=== PATIENT | male | born 1955 | race Caucasian/White ===

== ENCOUNTER 2017-07-04 08:22 | Outpatient (CLI) | payer OTHER, MEDICARE ==
--- NOTE | 2017-07-04 11:29 | ULT ---
ULTRASOUND RETROPERITONEUM COMPLETE: (RENAL) HISTORY: A 62-year-old male with microscopic hematuria. FINDINGS: The right kidney is 14.5 x 5.5 x 6.5 cm. The left kidney is 14 x 6 x 6.5 cm. No moderate sized or large cystic or solid renal lesion identified. No hydronephrosis. Pre-void urinary bladder volume 175 mL. Post-void urinary bladder volume 0. Prostate gland is lobulated, encroaches upon the floor of the bladder, and has a volume of approximat yordan 85 mL. Incidentally, hepatic echogenicity is diffusely increased. There are bilateral lobulations of the kidneys, a normal variant. IMPRESSION: 1. 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 2. Otherwise, no major pathology of the kidneys identified. 3. Enlarged prostate: evidence for benign prostatic hyperplasia, without bladder outlet obstruction. 4. Hepatic steatosis. OVI Bernal POS: [facility]
== END 2017-07-04 08:23 | disposition home or self-care (01) ==
LOC: ULT 08:22
PROVIDERS: ATTEND Urology
DX: R31.29 Other microscopic hematuria (principal); N28.89 Other specified disorders of kidney and ureter; N40.0 Benign prostatic hyperplasia without lower urinary tract symptoms; K76.0 Fatty (change of) liver, not elsewhere classified
CPT/HCPCS: 76770

== ENCOUNTER 2017-07-08 18:33 | Emergency (ER) | payer OTHER, MEDICARE ==
[~2017-07-08 18:33] MED LIST: Iopamidol 370 76% 100 ML VIAL ONE
[2017-07-08 19:42] LABS: #Basophils 0.1 thou/uL (0.0-0.2); #Eosinphils 0.1 thou/uL (0.0-0.7); #Lymphocytes 1.9 thou/uL (1.20-3.40); #Monocytes 0.5 thou/uL (0.11-0.59); #Neutrophils 4.3 thou/uL (1.40-6.50); %Basophils 1.3 % (0.0-1.0); %Eosinophils 1.9 % (0.0-10.0); %Lymphocytes 27.8 % (21.0-51.0); %Monocytes 6.9 % (0.0-10.0); %Neutrophils 62.2 % (42.0-75.0); Hemoglobin 13.2 g/dL (14.0-18.0); Mean Corpuscular HGB CONC 32.5 g/dL (32.0-36.0); Mean Corpuscular Hemoglobin 28.6 pg (27.0-31.0); Mean Corpuscular Volume 87.9 fl (80.0-94.0); Mean Platelet Volume 6.7 fL (7.4-10.4); Platelet Count 175 thou/uL (130-400); RBC Distribution Width 13.3 % (11.5-14.5); Red Blood Cell (RBC) Count 4.62 mill/uL (4.70-6.10); White Blood Cell (WBC) Count 6.9 thou/uL (4.8-10.8)
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
[2017-07-08] MEDS ORDERED: Morphine 4 MG/ML Carpuject ONE ×2 (19:58→20:58)
[2017-07-08] MEDS ORDERED: Ondansetron HCl/PF 4 MG/2 ML Vial ONE (19:58)
[2017-07-08 20:01] LABS: ALT (SGPT) 40 U/L (8-55); AST (SGOT) 27 U/L (5-34); Alkaline Phosphatase 40 U/L (40-150); Anion Gap 17 mmol/L (10-20); BUN (Urea Nitrogen) 18 mg/dL (8.4-25.7); Bilirubin, Total 0.8 mg/dL (0.2-1.2); Calc. Creatinine Clearance 0 mL/min (70-130); Calcium 9.7 mg/dL (7.8-10.44); Carbon Dioxide 22 mmol/L (23-31); Chloride 103 mmol/L (98-107); Estimated GFR-MDRD 50; Globulin 3.1 g/dL (2.4-3.5); Glucose 200 mg/dL (80-115); Lipase 52 U/L (8-78); Potassium 3.7 mmol/L (3.5-5.1); Protein, Total 7.1 g/dL (5.8-8.1); Sodium 138 mmol/L (136-145)
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
[2017-07-08 20:51] LABS: Bilirubin Negative (Negative); Blood, Urine Trace (Negative); Clarity Clear (Clear); Glucose, Urine (Dipstick) Negative (Negative); Leukocyte Negative (Negative); Nitrite Negative (Negative); Protein, Urine (Dipstick) > or equal to 300 mg/dL (Neg-Trace); Urobilinogen 0.2 mg/dL (0.2-1.0); pH, Urine 5.5 (5.0-9.0)
[2017-07-08 21:07] LABS: Bacteria/HPF None Seen HPF (None Seen); Hyaline Casts/LPF 0-3 HYALINE CAST LPF (0-3 Hyaline); RBC/HPF 0-3 HPF (0-3); Squamous Epithelial 0-3 HPF (0-3); WBC/HPF 0-3 HPF (0-3)
== END 2017-07-08 21:30 | disposition home or self-care (01) ==
LOC: SCSER 18:33
DX: S20.211A Contusion of right front wall of thorax, initial encounter (principal); S30.1XXA Contusion of abdominal wall, initial encounter; S80.11XA Contusion of right lower leg, initial encounter; E11.9 Type 2 diabetes mellitus without complications; I25.10 Atherosclerotic heart disease of native coronary artery without angina pectoris; K21.9 Gastro-esophageal reflux disease without esophagitis; E78.2 Mixed hyperlipidemia; I10 Essential (primary) hypertension; V86.45XA Person injured while boarding or alighting from a 3- or 4- wheeled all-terrain vehicle (ATV), initial encounter
CPT/HCPCS: 71260; 74177; 80053; 81003; 81015; 83690; 85025; 94760; 96361; 96374; 96375; 96376; J2270; J2405

== ENCOUNTER 2017-07-11 14:39 | Outpatient (CLI) | payer OTHER, MEDICARE | END 2017-07-11 14:40 | disposition home or self-care (01) | LOC: BICULT 14:39 | PROVIDERS: ATTEND Obstetrics & Gynecology | DX: I73.9 Peripheral vascular disease, unspecified (principal); R42 Dizziness and giddiness | CPT/HCPCS: 93880 ==

== ENCOUNTER 2017-07-17 14:08 | Outpatient (CLI) | payer OTHER, MEDICARE ==
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
== END 2017-07-17 14:09 | disposition home or self-care (01) ==
LOC: ULT 14:08
PROVIDERS: ATTEND Obstetrics & Gynecology
DX: M79.89 Other specified soft tissue disorders (principal); S89.92XA Unspecified injury of left lower leg, initial encounter; R22.41 Localized swelling, mass and lump, right lower limb; M79.81 Nontraumatic hematoma of soft tissue
CPT/HCPCS: 36415; 93970; G0103

== ENCOUNTER 2017-08-04 09:28 | Outpatient (CLI) | payer OTHER, MEDICARE ==
[~2017-08-04 09:28] MED LIST changes: +Iopamidol 300 61% 100 ML VIAL FS ONE; -Iopamidol 370 76% 100 ML VIAL ONE
== END 2017-08-04 09:29 | disposition home or self-care (01) ==
LOC: BICRAD 09:28
PROVIDERS: ATTEND Urology
DX: Q62.5 Duplication of ureter (principal)
CPT/HCPCS: 74410

== ENCOUNTER 2017-08-08 09:26 | Outpatient (CLI) | payer OTHER, MEDICARE ==
[2017-08-08 11:13] LABS: Hemoglobin 14.1 g/dL (14.0-18.0); Mean Corpuscular HGB CONC 35.3 g/dL (32.0-36.0); Mean Corpuscular Hemoglobin 30.4 pg (27.0-31.0); Mean Corpuscular Volume 86.1 fl (80.0-94.0); Mean Platelet Volume 7.5 fL (7.4-10.4); Platelet Count 183 thou/uL (130-400); RBC Distribution Width 13.9 % (11.5-14.5); Red Blood Cell (RBC) Count 4.63 mill/uL (4.70-6.10); White Blood Cell (WBC) Count 5.5 thou/uL (4.8-10.8)
[2017-08-08 11:18] LABS: PTT 27.2 SEC (22.9-36.1); Prothrombin Time 12.9 SEC (12.0-14.7)
[2017-08-08 11:31] LABS: Bilirubin Negative (Negative); Blood, Urine Trace (Negative); Clarity CLEAR (Clear); Glucose, Urine (Dipstick) Negative (Negative); Leukocyte Negative (Negative); Nitrite Negative (Negative); Protein, Urine (Dipstick) 100 mg/dL (Neg-Trace); Specific Gravity, Urine 1.011 (1.002-1.036); Urobilinogen 0.2 mg/dL (0.2-1.0); pH, Urine 5.5 (5.0-9.0)
[2017-08-08 11:36] LABS: Bacteria/HPF None Seen HPF (None Seen); Hyaline Casts/LPF 0-3 HYALINE CAST LPF (0-3 Hyaline); RBC/HPF 0-3 HPF (0-3); Squamous Epithelial None Seen HPF (0-3); WBC/HPF None Seen HPF (0-3)
[2017-08-08 11:42] LABS: Anion Gap 16 mmol/L (10-20); BUN (Urea Nitrogen) 18 mg/dL (8.4-25.7); Calc. Creatinine Clearance 0 mL/min (70-130); Calcium 9.7 mg/dL (7.8-10.44); Carbon Dioxide 25 mmol/L (23-31); Chloride 103 mmol/L (98-107); Estimated GFR-MDRD 61; Glucose 170 mg/dL (80-115); Potassium 4.2 mmol/L (3.5-5.1); Sodium 140 mmol/L (136-145)
== END 2017-08-08 09:27 | disposition home or self-care (01) ==
LOC: LABBT 09:26
PROVIDERS: ATTEND Urology
DX: Z01.818 Encounter for other preprocedural examination (principal); N40.1 Benign prostatic hyperplasia with lower urinary tract symptoms
CPT/HCPCS: 80048; 81001; 85027; 85610; 85730; 87086

== ENCOUNTER 2017-08-17 05:55 | Observation (INO) | payer OTHER, MEDICARE ==
[2017-08-08 09:48] VITALS: BMI 32.1
[2017-08-17] MEDS ORDERED: Midazolam HCl 2 mg/2 ml Vial ONE (07:00)
[2017-08-17] MEDS ORDERED: Fentanyl 250 MCG/5 ML VIAL ONE ×2 (07:01→10:19)
[2017-08-17] MEDS ORDERED: Levofloxacin 500 mg/D5W 100 ml Premix Bag ONE (07:15)
[2017-08-17] MEDS ORDERED: Insulin Regular 300 UNITS/3 ML VIAL ONE (07:41)
[2017-08-17] MEDS ORDERED: Hyoscyamine Sulfate SL 0.125 mg Tablet SL PRN (09:48)
[2017-08-17] MEDS ORDERED: Ondansetron HCl/PF 4 MG/2 ML Vial IVP PRN (09:48)
[2017-08-17] MEDS ORDERED: Morphine 4 MG/ML Carpuject IVP PRN (09:48)
[2017-08-17] MEDS ORDERED: HYDROcodone/Acetaminophen 5/325 mg Tablet PO PRN (09:48)
[2017-08-17] MEDS ORDERED: diphenhydrAMINE 25 MG CAP PO PRN (09:48)
[2017-08-17] MEDS ORDERED: hydrALAZINE 20 MG/ML VIAL SLOW IVP PRN (09:48)
[2017-08-17] MEDS ORDERED: Mag-Al 1200 mg/1200 mg/30 ML UDCUP PO PRN (09:48)
[2017-08-17] MEDS ORDERED: Dextrose 5% in Water 1,000 ML IV PRN (09:52)
[2017-08-17] MEDS ORDERED: Dextrose 50% Abboject 50 ML SYRINGE SLOW IVP PRN (09:52)
[2017-08-17] MEDS ORDERED: Insulin Regular 300 UNITS/3 ML VIAL SC PRN (09:52)
[2017-08-17] MEDS ORDERED: Nitroglycerin 0.4 MG TAB (25 Tab Bottle) SL PRN (10:00)
--- NOTE | 2017-08-17 10:12 | RAD ---
TWO VIEW CHEST: History: Pre-operative evaluation. FINDINGS: The lungs are clear. Heart and mediastinum appear normal. Post op sternotomy changes are noted. Anterior cervical spine fusion changes noted with plate and screws in the lower cervical spine. This has occurred since the prior exam of 06-19-16. No other interval change noted. IMPRESSION: No acute findings. POS: [facility]
[2017-08-17 10:40] LABS: Anion Gap 13 mmol/L (10-20); BUN (Urea Nitrogen) 26 mg/dL (8.4-25.7); Calc. Creatinine Clearance 91 mL/min (70-130); Calcium 8.8 mg/dL (7.8-10.44); Carbon Dioxide 23 mmol/L (23-31); Chloride 106 mmol/L (98-107); Estimated GFR-MDRD 58; Glucose 174 mg/dL (80-115); Potassium 4.3 mmol/L (3.5-5.1); Sodium 138 mmol/L (136-145)
[2017-08-17] MEDS ORDERED: Morphine 2 MG/ML SYRINGE ONE (10:57)
[2017-08-17] MEDS ORDERED: Morphine 2 MG/ML SYRINGE IVP PRN (12:00)
[2017-08-17] MEDS: Furosemide 20 MG TAB PO SCH (12:41)
[2017-08-17] MEDS: Oxybutynin 5 MG TAB PO PRN ×2 (12:42→21:43)
[2017-08-17] MEDS: HYDROcodone/Acetaminophen 5/325 mg Tablet PO PRN ×3 (13:28→21:45)
[2017-08-17] MEDS ORDERED: Glycopyrrolate 0.2 MG/ML 5 ML SYRINGE ONE (15:42)
[2017-08-17] MEDS ORDERED: Lidocaine 1% PF 5 ML VIAL ONE (15:42)
[2017-08-17] MEDS ORDERED: Propofol 200 MG/20 ML VIAL ONE (15:42)
[2017-08-17] MEDS ORDERED: Ondansetron HCl/PF 4 MG/2 ML Vial ONE (15:42)
--- NOTE | 2017-08-17 15:56 | OP ---
DATE OF SURGERY: 08/17/2017 SERVICE: Urology. SURGEON: Dr. Adria Galvan. PREOPERATIVE DIAGNOSIS: Benign prostatic hypertrophy. POSTOPERATIVE DIAGNOSIS: Benign prostatic hypertrophy. PROCEDURE PERFORMED: Transurethral resection of the prostate. INDICATIONS FOR PROCEDURE: Mr. Estevez is a 62-year-old white male who had come to see me for a sign ificant voiding problems. He is already on Flomax and finasteride and still is not able to urinate p erfectly. He did not want to be on medications any longer and elected for a TURP. Risks and benefit s of surgery have been discussed and he agreed to proceed forward. DESCRIPTION OF PROCEDURE: After identification of armband and verification of consent, the patient w as brought back to the operating room where he underwent general anesthesia with endotracheal intubat ion. He was then placed in the dorsal lithotomy position and prepped and draped in usual sterile fas hion. After appropriate timeout, a lubricated 24 [place]er resectoscope sheath was placed through the u rethra into the bladder. The meatus had to be dilated using Chris sounds to accommodate passage of the resectoscope sheath using the visual obturator. This was guided easily into the bladder where both ureters were identified and the bladder was found to be unremarkable. The prostate was signifi cantly hypertrophic as had been seen on prior cystoscopy. The visual obturator switched out for the bipolar gyrus resectoscope loop. Resection was carried out circumferentially on the prostate doing t he lateral lobes first and then the posterior portion and a gentle resection of the anterior portion of the prostate. A bladder neck relaxing incisions were done at 5 and 7 o'clock to create a wider pa ssage. Meticulous hemostasis was performed around the prostate and resection was taking care not to pass the verumontanum to avoid sphincteric injury and Ellik evacuator was then used to evacuated all the prostate chips and upon completing Ellik evacuation there were no prostate chips left in the blad guilherme. Hemostasis was then reachieved again, using the bipolar loop along the prostatic fossa. Both u reters were identified in their orthotopic location unharmed. There was no bleeding identified and t here were no further prostate chips. The resectoscope was then withdrawn throughout the urethra with the bladder full. A 22-H[place] Konger three-way Piper catheter was then inserted with ease into the patient 's bladder. A 30 mL of sterile water placed into the balloon. CBI was initiated and the StatLock fi xed the patient's leg. The patient was then taken out of lithotomy, awakened and taken to PACU for r ecovery in stable condition. COMPLICATIONS: None. ESTIMATED BLOOD LOSS: Minimal. RETAINED TUBES AND DRAINS: A 22-H[place]er three-way Piper catheter on CBI. SPECIMENS: Prostate chips. DISPOSITION: The patient will be kept in the hospital and observation and planned for discharged annabelle orrow morning after a void trial.
[2017-08-17] MEDS ORDERED: guaiFENesin ER 600 MG TAB PO PRN (17:17)
[2017-08-17] MEDS ORDERED: BENADRYL 25 MG PO PRN (18:55)
[2017-08-17] MEDS ORDERED: rOPINIRole HCl 0.25 MG TAB PO SCH (21:00)
[2017-08-17] MEDS: Docusate 100 MG CAP PO SCH (21:45)
[2017-08-18 04:39] LABS: #Eosinphils 0.2 thou/uL (0.0-0.7); #Lymphocytes 1.6 thou/uL (1.20-3.40); #Monocytes 0.7 thou/uL (0.11-0.59); #Neutrophils 4.7 thou/uL (1.40-6.50); %Basophils 0.5 % (0.0-1.0); %Eosinophils 2.6 % (0.0-10.0); %Lymphocytes 22.2 % (21.0-51.0); %Monocytes 9.8 % (0.0-10.0); %Neutrophils 64.9 % (42.0-75.0); Hemoglobin 12.2 g/dL (14.0-18.0); Mean Corpuscular HGB CONC 34.4 g/dL (32.0-36.0); Mean Corpuscular Hemoglobin 30.1 pg (27.0-31.0); Mean Corpuscular Volume 87.5 fl (80.0-94.0); Mean Platelet Volume 7.5 fL (7.4-10.4); Platelet Count 136 thou/uL (130-400); RBC Distribution Width 13.9 % (11.5-14.5); Red Blood Cell (RBC) Count 4.07 mill/uL (4.70-6.10); White Blood Cell (WBC) Count 7.2 thou/uL (4.8-10.8)
[2017-08-18 04:45] LABS: Anion Gap 10 mmol/L (10-20); BUN (Urea Nitrogen) 19 mg/dL (8.4-25.7); Calc. Creatinine Clearance 93 mL/min (70-130); Calcium 8.5 mg/dL (7.8-10.44); Carbon Dioxide 28 mmol/L (23-31); Chloride 100 mmol/L (98-107); Estimated GFR-MDRD 59; Glucose 229 mg/dL (80-115); Potassium 3.8 mmol/L (3.5-5.1); Sodium 134 mmol/L (136-145)
[2017-08-18] MEDS: HYDROcodone/Acetaminophen 5/325 mg Tablet PO PRN (06:27)
[2017-08-18] MEDS ORDERED: Aliskiren Hemifumarate 300 mg Tablet PO SCH (09:00)
[2017-08-18] MEDS ORDERED: Spironolactone 25 MG TAB PO SCH (09:00)
[2017-08-18] MEDS: Docusate 100 MG CAP PO SCH (09:15)
[2017-08-18] MEDS: Furosemide 20 MG TAB PO SCH (12:21)
[2017-08-18 14:28] VITALS: BP 126/76; TEMP 98.4
--- NOTE | 2017-08-18 15:41 | PRG ---
DATE OF SERVICE: 08/18/2017 SUBJECTIVE: The patient is doing very well. He is still having some catheter discomfort, but has ot herwise had an uneventful night. He had no hematuria this morning with the CBI off. He had a voidin g trial, which was successful and had only light red to pink urine on subsequent voids. He does not have any significant pain after his catheter was removed and he was discharged home without further p roblems. OBJECTIVE: VITAL SIGNS: Temperature 98.4, pulse 62, respirations 12, blood pressure 126/76, saturation 94% on r oom air. GENERAL: No apparent distress, communicative and alert. CHEST: Regular rate and rhythm. Symmetric pulses. ABDOMEN: Soft, nontender, nondistended. GENITOURINARY: Nonfocal. Catheter is out. EXTREMITIES: No clubbing, cyanosis or edema. LABORATORY DATA: The full set of labs are in the [facility] system, which I reviewed. Of note, the ramiro reina's hemoglobin is 12.2 with a creatinine of 1.24, which is stable. The patient is slightly hyper glycemic. ASSESSMENT AND PLAN: A 62-year-old white male with benign prostatic hypertrophy, status post transur ethral resection of the prostate postoperative day #1. He has done very well after his transurethral resection of the prostate with excellent void trial and without significant hematuria. He will be d ischarged home. His instructions were given to him as well as all appropriate paperwork. I will see him in approximately 2 weeks for followup.
--- NOTE | 2017-08-18 22:01 | DIS ---
DATE OF ADMISSION: 08/17/2017 DATE OF DISCHARGE: 08/18/2017 ADMITTING DIAGNOSIS: Benign prostatic hypertrophy. DISCHARGE DIAGNOSIS: Benign prostatic hypertrophy. PROCEDURE PERFORMED WHILE INPATIENT: Transurethral resection of the prostate. BRIEF HISTORY: Mr. Estevez is a 62-year-old white male with BPH and significant lower urinary tract symptoms only partially controlled on medications. He has elected for TURP and is now coming in for that procedure. HOSPITAL COURSE: After surgery (please see operative note for details), patient underwent his surger y successfully and was kept on the floor for CBI and hematuria monitoring. He did not have any hemat uria overnight and had his catheter removed in the morning. He passed a void trial with minimal bloo d. He did not have any significant discomfort and was discharged home. DISPOSITION: Discharge to home. DISCHARGE CONDITION: Good. DISCHARGE MEDICATIONS: Please see medical reconciliation. He will hold his aspirin and Plavix for a t least 5 days and then until his hematuria clears. He will also not need to take his Flomax or ronna steride any longer. Remainder can be found in the med rec. DISCHARGE INSTRUCTIONS: Please see discharge plan. FOLLOWUP: Follow up will be in approximately 2 weeks for a postop check.
[2017-08-24] MEDS ORDERED: (Dulaglutide [Trulicity] 0.75 MG) SC SCH (09:00)
== END 2017-08-18 14:50 | disposition home or self-care (01) ==
LOC: SDC 05:55 → SURG B 11:50
PROVIDERS: ADMIT Urology; ATTEND Urology
PROC: 0VT08ZZ Resection of Prostate, Via Natural or Artificial Opening Endoscopic (ICD-10-PCS; principal; 2017-08-18)
DX: N40.1 Benign prostatic hyperplasia with lower urinary tract symptoms (principal); I10 Essential (primary) hypertension; E78.5 Hyperlipidemia, unspecified; G47.30 Sleep apnea, unspecified; R35.1 Nocturia; R31.9 Hematuria, unspecified; Q62.5 Duplication of ureter; E11.9 Type 2 diabetes mellitus without complications; I25.10 Atherosclerotic heart disease of native coronary artery without angina pectoris; Z88.8 Allergy status to other drugs, medicaments and biological substances; Z95.1 Presence of aortocoronary bypass graft; Z98.890 Other specified postprocedural states
CPT/HCPCS: 36415; 36416; 71046; 80048; 85025; 86850; 86900; 86901; 88305; 96374; 96375; 96376; G0378; J1642; J1815; J1956; J2001; J2250; J2270; J2405; J2704; J3010

== ENCOUNTER 2017-11-08 11:06 | Observation (INO) | payer OTHER, MEDICARE ==
[2017-11-08 11:41] LABS: #Eosinphils 0.2 thou/uL (0.0-0.7); #Lymphocytes 1.9 thou/uL (1.20-3.40); #Monocytes 0.5 thou/uL (0.11-0.59); #Neutrophils 3.3 thou/uL (1.40-6.50); %Basophils 0.7 % (0.0-1.0); %Eosinophils 2.7 % (0.0-10.0); %Lymphocytes 32.4 % (21.0-51.0); %Monocytes 7.9 % (0.0-10.0); %Neutrophils 56.2 % (42.0-75.0); Mean Corpuscular HGB CONC 35.1 g/dL (32.0-36.0); Mean Corpuscular Hemoglobin 29.6 pg (27.0-31.0); Mean Corpuscular Volume 84.4 fl (80.0-94.0); Mean Platelet Volume 7.5 fL (7.4-10.4); Platelet Count 183 thou/uL (130-400); RBC Distribution Width 14.7 % (11.5-14.5); White Blood Cell (WBC) Count 5.9 thou/uL (4.8-10.8)
[2017-11-08] MEDS ORDERED: Nitroglycerin 2% Ointment 1 INCH/1 GM Packet ONE (11:41)
[2017-11-08 12:07] LABS: ALT (SGPT) 35 U/L (8-55); AST (SGOT) 24 U/L (5-34); Albumin 3.8 g/dL (3.4-4.8); Alkaline Phosphatase 48 U/L (40-150); Anion Gap 14 mmol/L (10-20); BUN (Urea Nitrogen) 14 mg/dL (8.4-25.7); Bilirubin, Total 1.3 mg/dL (0.2-1.2); CK (CPK) 125 U/L (30-200); Calc. Creatinine Clearance 0 mL/min (70-130); Calcium 10.2 mg/dL (7.8-10.44); Carbon Dioxide 22 mmol/L (23-31); Chloride 102 mmol/L (98-107); Estimated GFR-MDRD 68; Globulin 3.3 g/dL (2.4-3.5); Glucose 231 mg/dL (80-115); Potassium 3.8 mmol/L (3.5-5.1); Protein, Total 7.1 g/dL (5.8-8.1); Sodium 134 mmol/L (136-145)
[2017-11-08 12:11] LABS: CKMB 1.6 ng/mL (0-6.6); Troponin I Less than 0.010 ng/mL (< 0.028)
--- NOTE | 2017-11-08 12:12 | RAD ---
UPRIGHT PORTABLE CHEST 1 VIEW: Date: 11/08/17 HISTORY: 62-year-old male with history of substernal chest pain since this morning. COMPARISON: 08/11/15 and 08/17/17. FINDINGS: Postop midline sternotomy changes. Lower cervical and anterior cervical fusion. Heart size is within normal limits. The lungs are clear. IMPRESSION: No acute intrathoracic disease. Stable from prior study. POS: [facility]
[2017-11-08] MEDS ORDERED: Acetaminophen 500 MG TAB ONE (13:06)
[2017-11-08 14:52] VITALS: BMI 33.2
[2017-11-08 14:56] LABS: Troponin I Less than 0.010 ng/mL (< 0.028)
[2017-11-08] MEDS ORDERED: Ondansetron ODT 4 MG TAB PO PRN (15:26)
[2017-11-08] MEDS ORDERED: Bisacodyl 5 MG TAB PO PRN (15:26)
[2017-11-08] MEDS ORDERED: Nitroglycerin 0.4 MG TAB (25 Tab Bottle) SL SCH (15:45)
[2017-11-08] MEDS ORDERED: EVOLOCUMAB FS SCH (16:15)
[2017-11-08] MEDS: Acetaminophen/Codeine 30-300mg Tablet PO PRN ×2 (16:24→20:55)
[2017-11-08] MEDS ORDERED: Communication Order-Pharmacy FS SCH (18:00)
[2017-11-08 18:13] LABS: Troponin I Less than 0.010 ng/mL (< 0.028)
--- NOTE | 2017-11-08 19:49 | HP ---
DATE OF ADMISSION: 11/08/2017 CHIEF COMPLAINT: Chest pain. HISTORY OF PRESENT ILLNESS: This patient is a 62-year-old male with a history of an extensive funes ry artery disease pattern. The patient has had previous bypass surgeries and subsequent stenting. T he patient reports that he was previously told by Dr. Zavala that there was basically no further inte rventions that could be performed with regard to his coronaries. The patient's last heart catheteriz ation was 2 years ago at [facility]. He saw the mid-level provider at Dr. Zavala's office about 6 weeks ago. The patient reports that just over a month ago, he underwent prostate surgery. At that time, he was asked to get off his diuretics, because he was having severe bladder spasms. He has not had any since that time until today. The patient reports that for the last week, he has been experiencing worsening shortness of breath wi th exertion. He states he is to the point now where he can only walk 6-7 steps before he becomes ext remely dyspneic. He also has associated substernal chest pain that radiates to his left shoulder and arm. He reports that these symptoms are exactly the symptoms he had prior to his previous [facility]. He reports this feels like a profound heaviness in his chest, like something heavy is sitting there. He reports this is a 7/10 at worst. When he was able to lie down, he states that it does no t return completely to 0, but improves. He also reports that simply bending over exacerbates his atul rtness of breath substantially. Additionally, he reports that when his symptoms were occurring, he i s having pain in his posterior neck and shoulders, which is actually new for him. REVIEW OF SYSTEMS: The patient admits to having some increased blurred vision over the past 3 weeks. He is unaware of why. He also reports some difficulty swallowing and is concerned this may be rela swathi to medications. He states it feels like things occasionally will stick in his chest area. He re ports that his bladder spasms have improved with time and are no longer a problem. He also has chron ic low back pain. Other than that, a 10-system review was unremarkable other than those things menti oned in the history of present illness. PAST MEDICAL HISTORY: Notable for the significant coronary artery disease. The patient had a 2-vess el bypass graft in 2010 and a 3-vessel bypass graft in 2015. The patient has had multiple repeat hea rt catheterizations with up to 7 stents placed. The patient has had spinal fusion in 2004. He had a lumbar diskectomy with Dr. Franklin in 2011. Repeat lumbar laminectomy in 09/2015. Cholecystectom y in 2015. His last heart catheterization in 08/2015 apparently revealed LAD with 80% stenosis over a previously placed stent with three-vessel disease with patent grafts and distal disease with an eje ction fraction of 50%. PAST MEDICAL HISTORY: The patient has a history of hypertension and hyperlipidemia, but he is intole rant to statin medications. He has obstructive sleep apnea, chronic back pain, and some history of a nxiety. FAMILY HISTORY: Notable for mother who in surgery with a cerebral aneurysm after having previou s TIAs. She also had diabetes mellitus. His father and siblings all have diabetes as well. SOCIAL HISTORY: The patient is . He does not use alcohol or tobacco. He states that his lance rogate decision maker would be his . He also requests DNR status. The patient reports that he h as lived in pain most of his life and does not want to be resuscitated because of that. CURRENT MEDICATIONS: Aspirin 81 mg p.o. daily, Plavix 75 mg day, Tekturna 300 mg q.a.m., Tylenol wit h Codeine q.6 hours p.r.n., acarbose 50 mg t.i.d., Repatha subcu injection, Trulicity 75 mcg every we ek, Colace 100 mg b.i.d., metoprolol 25 mg b.i.d., metaxalone 800 mg q.8 hours p.r.n., ropinirole 0.2 5 mg at bedtime, Aldactone 50 mg q.a.m., pantoprazole 40 mg q.a.m., Aldactone 25 mg every noon, Lasix 20 mg p.o. every noon. ALLERGIES: GINO INHIBITORS, LISINOPRIL, PREGABALIN, and STATINS. PHYSICAL EXAMINATION: VITAL SIGNS: Temperature 98.6, pulse 66, respirations 20, O2 sat 95%, blood pressure 138/78. GENERAL APPEARANCE: Age-appropriate male in no distress. He is pleasant, cooperative. HEENT: PERRL. No OP lesions. NECK: Supple and symmetric without lymphadenopathy or JVD. CARDIOVASCULAR: Regular rate and rhythm without murmurs, gallops, or rubs. LUNGS: Clear to auscultation bilaterally with good chest wall expansion and air exchange. ABDOMEN: Soft, nontender, nondistended. Positive bowel sounds. EXTREMITIES: Warm and dry with no notable edema. SKIN: Unremarkable. PSYCHIATRIC: The patient has normal affect. LABORATORY DATA: White count 5.9, hemoglobin 16, platelets 7.5. Sodium 134, potassium 3.8, chloride 102, CO2 is 22, glucose 231, calcium 10.2, bilirubin is 1.3. LFTs are normal. Troponin is less jose r n 0.01 x2. BNP is 152. Albumin is 3.8. Chest x-ray is unremarkable. EKG showed sinus rhythm with single PVC. IMPRESSION AND PLAN: 1. Chest pain in a patient with substantial history of coronary artery disease with bypass surgery x 2 and multiple subsequent interventions with stenting. The patient is presenting with recurrence of symptoms similar to what he had prior to his previous interventions. He will be placed in observatio n and on telemetry. We will perform additional troponins. We will consult Cardiology. I will hold off on ordering any sort of diagnostic testing as of yet, as the patient reports that he has never mendoza d any success in finding his coronary disease on any type of screening exam and always required heart catheterization. The patient's BNP is only modestly elevated, but he has been on diuretics in the p ast and has been off this for a while. He did take his doses this morning and reports that he has vo ided a fair amount with no problems with his bladder. We will give him a small dose of IV Lasix as moon heath. 2. Hyperlipidemia. The patient has intolerance to statins and significant problems with his triglyc erides. We will continue with his usual home medications. 3. Diabetes. We will continue with his usual home medication regimen and check Accu-Cheks. 4. Chronic back pain. We will continue with the patient's usual home regimen of Tylenol No. 3. May need to adjust that.
--- NOTE | 2017-11-08 20:18 | CON ---
DATE OF CONSULTATION: 11/08/2017 CARDIOLOGY CONSULT NOTE DATE OF ADMISSION: 11/08/2017 INDICATION FOR CONSULTATION: A 62-year-old patient with history of known coronary artery disease wit h chest pain. HISTORY OF PRESENT ILLNESS: This is a very pleasant 62-year-old patient who has been followed by Dr. Zavala for several years. He underwent a cardiac catheterization in 2010 with 2-vessel bypass. He did undergo a repeat bypass surgery in 2014 with 3-vessel bypass in the interim, had 3 stents placed prior to his first bypass surgery, then he had 4 more stents placed prior to his second bypass surger y. He underwent his last cardiac catheterization in 08/[address] Zavala which showed the left ante rior descending artery of 80% in-stent restenosis, a subtotal of LAD after the first diagonal branch. The first diagonal branch also was subtotal. The right coronary artery had a proximal stent placed which was stable. Distal to the stent was about 60% stenosed. The left obtuse marginal branch was unremarkable of any significant stenosis. The saphenous vein graft to the left anterior descending a rtery also was patent, but there was diffuse distal disease. After the bypass surgery insertion, thi s is a small distal vessel, also the diagonal branch appeared to be normal after the bypass surgery, I believe this was second diagonal branch. The first diagonal branch is sub-totaled perhaps and ther e is a saphenous vein graft to diagonal branch which remained patent. There is a saphenous vein elda t to the posterior descending artery which also remained patent, but there is distal disease noted in the posterior descending artery and the ejection fraction was felt to be about 50%. He had been doi ng relatively well, but over the last few weeks he has been complaining of increasing shortness of br eath and some edema and had noticed some chest pain in the last 10-14 days which he describes as bein g chest heaviness radiating to the left shoulder and left arm. He had undergone a prostate surgery b y Dr. Galvan and at that time has been noticing some bladder spasms and his diuretics were stopped. He has not been on the diuretics for the last couple of months. He has also had worsening of the sh ortness of breath and says he cannot walk more than 10-15 feet. He also had been on Ranexa in the [facility] and this medication has been stopped at some point of time. He is unclear as to why it was stoppe d and whether or not this was being beneficial to him. He thought perhaps he had some side effects, but he cannot remember exactly why the medication was stopped. He has also had some back surgery and has neck pain and has been told he needs to have a pain stimulator implanted. He has apparently res tarted taking Lasix on his own today and has had some diuresis. This gentleman also has diabetes and has not been checking his diabetes on a routine basis last several months, as much as 6 months, sayi gayathri that he did not have any strips to check his blood sugars. He also says that this pain is somewha t similar to the pain but he has not had any significant pain, but he has had shortness of breath in the past. This is very similar to what he experienced prior to having bypass surgeries. He also has been complaining of some mild dizziness. PAST MEDICAL HISTORY: Significant for the coronary artery disease and bypass surgery, diabetes, pros brothers surgery, back surgery. He has history of gastroesophageal reflux disease. He has hypertriglyce ridemia. MEDICATIONS: Should have included prior to admission, acarbose 50 mg t.i.d., [place] aspirin, Plavi x, TriCor, gabapentin, Imdur, metoprolol, nitroglycerin, Zofran, Protonix, Ranexa, Aldactone, Flomax, Lasix, Vascepa, and ropinirole. This is from discharge on 06/2016. Most recently, he has not been taking the Ranexa, nor has he been taking the diuretics. He also had been on spironolactone. He is no longer taking that and was also no longer taking that medicine that has been discontinued due to h is bladder spasm. At this time, his medications include the Plavix, acarbose, aspirin 81 mg a day, P lavix 75 mg a day, Colace, he has been placed on furosemide 20 mg a day, metoprolol 25 mg b.i.d., nit roglycerin sublingual p.r.n., Protonix, ropinirole, spironolactone, Tylenol p.r.n. and other p.r.n. m edications. He also was placed back on his Aliskiren. REVIEW OF SYSTEMS: He complains of some visual changes recently, he probably needs to have his eyes checked for a while. He has had no pulmonary complaints except for the shortness of breath. He remedios ed any asthma, emphysema or bronchitis. Gastrointestinal: He had no nausea, vomiting or diarrhea. Genitourinary: He has had some hematuria after his prostate surgery, but none since then, but he con tinued to have some problems with bladder spasms. Musculoskeletal: He complains of occasional leg c ramps at night, but no claudication-type symptoms. He has some mild lower extremity edema. He has s aphenous vein graft removal from both lower extremities. Neurologically, no history of seizures or s yncope. He does have occasional dizziness. ALLERGIES: He says he is allergic to GINO INHIBITORS, LISINOPRIL, ROSUVASTATIN, and NEURONTIN. FAMILY HISTORY: Noncontributory. PHYSICAL EXAMINATION: GENERAL: Reveals a well-developed, well-nourished gentleman. He is afebrile. Blood pressure 138/78 , heart rate is 66 and regular, respiratory rate 20, O2 saturation 95%. HEENT: Reveals the head to be normocephalic and atraumatic. Carotid pulses are present. There are no bruits. CHEST: Actually clear to auscultation. I do not hear rales, rhonchi or wheezing. CARDIOVASCULAR: Exam reveals a regular rate and rhythm. He has well-healed midline surgical incisio n after median sternotomy. There were no significant murmurs or heaves or thrills. ABDOMEN: Shows obesity with positive bowel sounds. No organomegaly or masses. He has well-healed s urgical incision after cholecystectomy. EXTREMITIES: Lower extremities show pedal pulses be present. He has 1+ lower extremity edema. NEUROLOGIC: The patient appears to be fully intact. SKIN: Warm and dry. LABORATORY DATA: Shows hemoglobin of 16, WBC of 5.9, potassium is 3.8, creatinine is 1.1, blood suga r was 231. Troponin Is are all negative. His BNP was 152. His CPK-MB was 1.6. IMPRESSION: 1. Chest pain with a history of known coronary artery disease and the patient with normal cardiac en zymes and no significant abnormalities on the EKG, but he describes his symptoms as being similar to what he had prior to undergoing bypass surgery. He may need to undergo repeat cardiac catheterizatio n. He may have had graft closure or compromise of further grafts. We will leave this up to discreti on of Dr. Zavala when he sees the patient tomorrow, but I will keep the patient n.p.o. tonight. He w ill also resume his Ranexa and see whether or not he can tolerate this medication. 2. History of diabetes. He will need better control of his diabetes. He will need to have his stri ps so that he can check his sugar levels at home. 3. History of hypercholesterolemia and hypertriglyceridemia. We suggested he try some type of medic ation if he is unable to tolerate statins, then certainly can try one of the newer medications inject safia. 4. History of bladder spasms. This will be dealt with by the urologist whether or not he will be ab le to tolerate the Lasix. He had recently been started on new medication. I believe this is Requip, which may help some of his problems, I would continue the Aldactone at this time. Further recommend ations will be by Dr. Zavala when he evaluates the patient tomorrow.
[2017-11-08] MEDS: Docusate 100 MG CAP PO SCH (20:59)
[2017-11-08] MEDS ORDERED: rOPINIRole HCl 0.25 MG TAB PO SCH (21:00)
[2017-11-08] MEDS ORDERED: Zolpidem Tartrate 5 MG TAB PO PRN (21:53)
[2017-11-08] MEDS ORDERED: Nitroglycerin 0.4 MG TAB (25 Tab Bottle) SL PRN (23:04)
[2017-11-08] MEDS ORDERED: Morphine 4 MG/ML VIAL IV PRN (23:04)
[2017-11-09 05:10] LABS: Cardiac Risk 8.5 (Less than 4.5); Cholesterol 213 mg/dl (< 200 Desired); HDL Cholesterol 25 mg/dL (>60 Neg Risk)
[2017-11-09 05:18] LABS: Triglycerides 1062 mg/dL (Less than 150)
[2017-11-09] MEDS: Docusate 100 MG CAP PO SCH (07:27)
[2017-11-09] MEDS ORDERED: Sodium Chloride 0.9% 1,000 ML IV SCH (08:45)
[2017-11-09] MEDS ORDERED: Communication Order-Pharmacy FS SCH (08:45)
[2017-11-09] MEDS ORDERED: Diazepam 5 MG TAB PO SCH (08:45)
[2017-11-09] MEDS ORDERED: Spironolactone 25 MG TAB PO SCH ×2 (09:00→12:00)
[2017-11-09] MEDS ORDERED: Aliskiren Hemifumarate 300 mg Tablet PO SCH (09:00)
[2017-11-09] MEDS ORDERED: Dulaglutide [Trulicity] 0.75 MG SC SCH (09:00)
[2017-11-09] MEDS ORDERED: Aspirin 81 mg Enteric Coated Tablet PO SCH (09:00)
[2017-11-09] MEDS ORDERED: Clopidogrel Bisulfate 75 MG TAB PO SCH (09:00)
[2017-11-09] MEDS ORDERED: Lidocaine 1% (PF) 30 ML VIAL ONE (09:22)
--- NOTE | 2017-11-09 09:22 | PRG ---
DATE OF SERVICE: 11/09/2017 SUBJECTIVE: Mr. Estevez was admitted to the hospital with prolonged episodes of chest pain and incre asing shortness of breath. The patient stopped taking his furosemide a couple of weeks ago, because it was causing bladder spasms. I had a long talk with Mr. Estevez and his . At this point, it i s unclear whether any other intervention would be helpful or feasible. Reviewing the previous notes, the only situation that he would likely be beneficial if the right coronary graft is occluded, [place] vessel. It does not look like there is anything on the left side of his heart that could be likely to benefit from percutaneous therapy, but they wish to be evaluated to see if there is anythin g further that can be done. They understand the detention prognosis is poor where there is advanced h eart disease. They understand the risk of procedure, stroke, heart attack, iodine allergy, loss of b lood supply to the leg or kidney, stent thrombosis, stent restenosis. They wish to proceed. They un derstand the poor long-term prognosis.
[2017-11-09] MEDS ORDERED: Midazolam HCl 2 mg/2 ml Vial ONE ×2 (09:44→09:50)
[2017-11-09] MEDS ORDERED: Fentanyl 100 MCG/2 ML VIAL ONE (09:44)
[2017-11-09] MEDS ORDERED: hydrALAZINE 20 MG/ML VIAL ONE (10:35)
[2017-11-09] MEDS ORDERED: traMADol HCl 50 MG TAB PO PRN (10:35)
[2017-11-09] MEDS ORDERED: Nitroglycerin 0.4 MG TAB (25 Tab Bottle) SL PRN (10:35)
[2017-11-09] MEDS ORDERED: Acetaminophen/Codeine 30-300mg Tablet PO PRN ×2 (10:35)
[2017-11-09] MEDS ORDERED: Sodium Chloride 0.9% 200 ML IV SCH (10:45)
[2017-11-09 10:52] VITALS: BP 142/83; TEMP 97.7
--- NOTE | 2017-11-09 11:12 | PDOC.PN ---
- Subjective Encounter Start Date: 11/09/17 Encounter Start Time: 11:10 Complains of some exacerbation of his chronic back pain. Request something for that. He has talked to Dr. Lewis and wants to move forward. - Objective Resuscitation Status: Resuscitation Status DNR:Do Not Resuscitate Vital Signs & Weight: Vital Signs (12 hours) Temp Pulse Resp BP BP Pulse Ox 11/09/17 10:48 97.7 F 73 20 142/83 H 93 L 11/09/17 07:45 98.2 F 64 20 166/78 H 95 11/09/17 04:10 64 18 135/81 94 L Weight Weight 245 lb I&O: 11/08/17 11/09/17 11/10/17 06:59 06:59 06:59 Intake Total 300 Balance 300 Result Diagrams: 11/08/17 11:32 11/08/17 11:32 Additional Labs: Accuchecks 11/09/17 11/08/17 11/08/17 06:20 21:50 16:17 POC Glucose 161 H 196 H 155 H Phys Exam - Physical Examination Constitutional: NAD Appears uncomfortable. Respiratory: no wheezing, no rales, no rhonchi, wheezing present, clear to auscultation bilateral Cardiovascular: RRR, no significant murmur Gastrointestinal: soft, non-tender, no distention Musculoskeletal: no edema Psychiatric: normal affect Dx/Plan (1) Chest pain Code(s): R07.9 - CHEST PAIN, UNSPECIFIED Status: Chronic Qualifiers: Chest pain type: other chest pain Qualified Code(s): R07.89 - Other chest pain; R07.8 - Other chest pain Plan: He has talked with Cardiology. He understands the likelihood that there is not going to be an intervention possible and that he has end-stage coronary disease , but willing to attempt another cath to look for any possible options. (2) Coronary artery disease Code(s): I25.10 - ATHSCL HEART DISEASE OF [place] CORONARY ARTERY W/O ANG PCTRS Status: Chronic Qualifiers: Coronary Disease-Associated Artery/Lesion type: [place] artery [place] vs. transplanted heart: [place] heart Associated angina: with unstable angina Qualified Code(s): I25.110 - Atherosclerotic heart disease of [place] coronary artery with unstable angina pectoris Plan: Cardiology consulted. End-stage disease not previously amenable to any further interventions. (3) Back pain Code(s): M54.9 - DORSALGIA, UNSPECIFIED Status: Chronic Qualifiers: Back pain location: low back pain Chronicity: chronic Back pain laterality: midline Sciatica presence: unspecified whether sciatica present Qualified Code(s): M54.5 - Low back pain; G89.29 - Other chronic pain; G89.29 - Other chronic pain Plan: Will add some IV morphine to his T#3. (4) Diabetes type 2, controlled Code(s): E11.9 - TYPE 2 DIABETES MELLITUS WITHOUT COMPLICATIONS Status: Chronic Qualifiers: Diabetes mellitus jail insulin use: without group director experience use Diabetes mellitus complication status: with circulatory complication Diabetes mellitus complication detail: with other circulatory complications Qualified Code(s): E11.59 - Type 2 diabetes mellitus with other circulatory complications Plan: Continue home meds and monitoring. - Plan * Above.
[2017-11-09] MEDS ORDERED: Morphine 4 MG/ML VIAL SLOW IVP PRN (11:18)
[2017-11-09] MEDS ORDERED: Iopamidol 370 76% 100 ML VIAL ONE (11:34)
[2017-11-09] MEDS ORDERED: Furosemide 20 MG TAB PO SCH (12:00)
--- NOTE | 2017-11-10 11:32 | DIS ---
DATE OF ADMISSION: 11/08/2017 DATE OF DISCHARGE: 11/09/2017 DISCHARGE DIAGNOSES: 1. Chest pain. 2. Coronary artery disease. 3. Back pain. 4. Diabetes mellitus. 5. Familial hyperlipidemia. HOSPITAL COURSE: This patient is a 62-year-old male with a history of 2 separate coronary artery byp ass graft surgeries with subsequent occlusions and multiple stents being placed. The patient had pre viously been at a point where he was told there was not significant opportunity for further intervent ions on his coronary arteries. The patient presented to the hospital complaining of chest pain that was completely similar to the episodes that he had had prior to his bypass surgeries. He had shortne ss of breath with exertion during this same time frame and got to the point where he could only walk a few steps without becoming short of breath. HOSPITAL COURSE: The patient initially had no EKG findings of ischemia and his troponins were negati ve. He was placed in observation where he had cardiac telemetry and serial cardiac isoenzymes. Thes e remained normal. He was evaluated by Cardiology. Dr. Zavala, who is his primary broommaker, ul imately consented for repeat heart catheterization as the patient is willing to accept the risk under standing there was a very low opportunity for significant intervention. The patient did undergo the heart catheterization and there were no new lesions found that would possibly be amenable to interven tion. Subsequently, the patient was restarted on his Ranexa. The patient had been on this previousl y, but somehow it had been discontinued. The patient was pain free and feeling better and felt to be stable for discharge to home. DISPOSITION: The patient is discharged to home. He is to continue with a heart healthy diet. He is to continue his activity level as tolerated. HOME MEDICATIONS: Will include Bystolic 5 mg p.o. daily, Vascepa 2 mg p.o. b.i.d. with meals, Myrbet riq 50 mg p.o. daily, aspirin 81 mg day, Plavix 75 mg day, Colace 100 mg p.o. b.i.d., Repatha as inst ructed every 2 weeks, Tylenol #3 q.6 hours p.r.n., Aldactone 50 mg p.o. q.a.m. and 25 mg p.o. every n oon, metaxalone 800 mg q.8 hours as needed, Lasix 20 mg p.o. daily, Trulicity 0.75 mcg p.o. q. 7 days , ropinirole 0.25 mg p.o. at bedtime, nitroglycerin 0.4 mg sublingual every 5 minutes p.r.n. chest pa in, metoprolol 25 mg p.o. b.i.d., pantoprazole 40 mg p.o. daily. We will also renew his prescription for Ranexa at 500 mg b.i.d. for 1 week and then go to 1000 mg b.i.d. PHYSICAL EXAMINATION: VITAL SIGNS: On the day of discharge, temperature is 97.7, pulse 73, respirations 20, O2 sat 93%, an d BP was 142/83. GENERAL: The patient was awake, alert, oriented, very pleasant, and cooperative. CARDIOVASCULAR: His heart was regular rate and rhythm without murmurs. LUNGS: Clear to auscultation bilaterally with good chest wall expansion, air exchange. ABDOMEN: Soft, nontender, nondistended with positive bowel sounds. EXTREMITIES: Warm and dry. His blood sugar remained at 126. The patient's fasting lipid panel performed in the hospital reveale d a triglyceride of 1062, total cholesterol 213, LDL unable to calculate, his HDL was 25.
== END 2017-11-09 15:43 | disposition home or self-care (01) ==
LOC: ERS 11:06 → 2SW 13:59
PROVIDERS: ADMIT Internal Medicine; ATTEND Internal Medicine
PROC: 4A023N7 Measurement of Cardiac Sampling and Pressure, Left Heart, Percutaneous Approach (ICD-10-PCS; principal; 2017-11-09)
PROC: B2111ZZ Fluoroscopy of Multiple Coronary Arteries using Low Osmolar Contrast (ICD-10-PCS; 2017-11-09)
PROC: B2121ZZ Fluoroscopy of Single Coronary Artery Bypass Graft using Low Osmolar Contrast (ICD-10-PCS; 2017-11-09)
DX: I25.110 Atherosclerotic heart disease of native coronary artery with unstable angina pectoris (principal); I10 Essential (primary) hypertension; E11.9 Type 2 diabetes mellitus without complications; E78.5 Hyperlipidemia, unspecified; G47.33 Obstructive sleep apnea (adult) (pediatric); F41.9 Anxiety disorder, unspecified; G89.29 Other chronic pain; M54.9 Dorsalgia, unspecified; K21.9 Gastro-esophageal reflux disease without esophagitis; E66.9 Obesity, unspecified; Z68.33 Body mass index [BMI] 33.0-33.9, adult; Z79.82 Long term (current) use of aspirin; Z79.84 Long term (current) use of oral hypoglycemic drugs; Z79.899 Other long term (current) drug therapy; Z88.8 Allergy status to other drugs, medicaments and biological substances; Z95.1 Presence of aortocoronary bypass graft; Z95.5 Presence of coronary angioplasty implant and graft; Z66 Do not resuscitate
CPT/HCPCS: 36415; 36416; 71045; 76942; 80053; 80061; 82553; 83880; 84484; 85025; 93005; 93455; 93798; 99152; 99153; C1769; G0378; J0360; J1644; J2001; J2250; J3010; Q0162

== ENCOUNTER 2020-02-19 13:32 | Outpatient (CLI) | payer MEDICARE, OTHER ==
--- NOTE | 2020-02-19 14:58 | CT ---
CT of theneck with IV contrast: 02/19/2020 COMPARISON:None available HISTORY:Difficulty swallowing for several months, neck pain TECHNIQUE: Serial axial CT imaging at3 mm intervals from theskull base through the lung apices with I V contrast. Coronal and sagittal reformatted imaging obtained Findings:Visualized skull base grossly unremarkable. The retroantral fat and the parapharyngeal fat a ppears clear bilaterally. The parotid glands and the submandibular glands appear grossly unremarkable. The tonsillar pillars, epiglottis and preepiglottic fat, hyoid bone, thyroid cartilage, cricoid carti harvey, and thyroid gland appear grossly unremarkable as does the level of the glottis. The patient is status post midline sternotomy. Dorsal column stimulators are present, terminating at the C2-3 lev el. No lymphadenopathy is noted. The vascular structures appear grossly unremarkable. The imaged lung api roselyn are unremarkable. Anterior discectomy and fusion hardware is present at the C5-6/C6-7 levels. There is disc space narro wing with anterior osteophyte formation at C4-5. No acute osseous abnormality. Impression:Multiple incidental findings as detailed above. No acute findings are seen.
[2020-02-19] MEDS ORDERED: Iopamidol 370 76% 100 ML VIAL ONE (16:15)
== END 2020-02-19 13:33 | disposition home or self-care (01) ==
LOC: BICCT 13:32
PROVIDERS: ATTEND Student in an Organized Health Care Education/Training Program
DX: R13.10 Dysphagia, unspecified (principal); Z98.1 Arthrodesis status
CPT/HCPCS: 70491; 82565; Q9967

== ENCOUNTER 2023-12-05 07:03 | Outpatient (CLI) | payer MEDICARE, OTHER | END 2023-12-05 07:04 | disposition home or self-care (01) | LOC: BICCT 07:03 | PROVIDERS: ATTEND Otolaryngology Otolaryngic Allergy | DX: M54.2 Cervicalgia (principal); Z98.1 Arthrodesis status | CPT/HCPCS: 70491; 82565 ==